=== PATIENT | male | born 1975 | race Asian ===

== ENCOUNTER 2022-10-16 12:43 | Day surgery (SDC) | payer OTHER, SELFPAY ==
[2022-10-16] VITALS (7 sets, daily range): BP systolic 117–149; BP diastolic 70–98; PULSE 65–86; RESP 14–19; TEMP 36.5–37.1; O2SAT 94–98; BMI 33.6
--- NOTE | 2022-10-16 | PATH_ITS ---
[facility] Accession Number: [id number] No. of containers..03 Tissue . 01 Material submitted: . PART A: gastrointestinal site - GASTRIC POLYP PART B: esophagus - Z-LINE BIOPSY PART C: colon - TRANSVERSE COLON POLYP . 01 Diagnosis: A. Gastric Polyp, Biopsy: Consistent with early fundic gland polyp. Negative for Helicobacter organisms by immunohistochemistry. Negative for intestinal metaplasia. Negative for dysplasia or malignancy. Additional step sections examined. . B. Z-Line, Biopsy: Proximal gastric-type mucosa with mild chronic inflammation. Negative for specialized intestinal metaplasia on alcian blue stain. Negative for dysplasia or malignancy. . C. Transverse Colon Polyp: Tubular adenoma. Additional step sections examined. V 10/19/2022 1453 Local . 01 Electronically signed: . Lawrence Mccarty MD, PhD, Pathologist NPI- [id number] . 01 Gross description: . Part A: GASTRIC POLYP: Received in formalin is 1 fragment(s) of cruz, soft tissue measuring 0.2 x 0.2 x 0.2 cm submitted entirely in 1 cassette(s) Part B: Z-LINE BIOPSY: Received in formalin is 1 fragment(s) of cruz, soft tissue measuring 0.3 x 0.2 x 0.2 cm submitted entirely in 1 cassette(s) Part C: TRANSVERSE COLON POLYP: Received in formalin is 1 fragment(s) of cruz, soft tissue measuring 0.3 x 0.2 x 0.2 cm submitted entirely in 1 cassette(s) /APPLE 10/17/2022 1934 Local . 01 Microscopic: . A. An immunohistochemical stain was performed to evaluate for Helicobacter organisms and is negative. The control stain showed appropriate reactivity. . B. An alcian blue stain is performed to evaluate for specialized intestinal metaplasia, and is negative for goblet cells. A control stain shows appropriate reactivity. . * This test was developed and its performance characteristics determined by [facility]. It has not been cleared or approved by the U.S. Food and Drug Administration. The FDA has determined that such clearance or approval is not necessary. This test is used for clinical purposes. It should not be regarded as investigational or for research. . 01 Pathologist provided ICD-10: K31.7, K20.80, D12.3 . 01 CPT . 300260, 063527, 509228, Z07115, 420075 Performed at: 01 [facility] [address] [place] [address], [place], [place] [id number] MD Sincere Ward MD Phone: [phone]
[2022-10-16] MEDS: LACTATED RINGERS 1,000 ML 42 ML IV (14:17)
--- NOTE | 2022-10-16 14:17 | PM.HP.1 ---
History of Present Illness History of Present Illness Date Patient Seen: 10/16/22 Time Patient Seen: 14:17 Chief complaint: EGD/Colonoscopy Narrative: I reviewed the notes. No significant changes. He is not had any bleeding recently. He presents today for diagnostic EGD and colonoscopy for colon cancer screening. [facility] Social History household members: spouse Smoking Status: Never smoker alcohol intake: current Meds Home Medications and Allergies Home Medications Medication Instructions Recorded Confirmed Type omeprazole 20 mg capsule,delayed mg PRN PRN Acid Reflux 10/16/22 History release simvastatin 20 mg tablet 20 mg DAILY 10/16/22 10/16/22 History Allergies Allergy/AdvReac Type Severity Reaction Status Date / Time No Known Drug Allergies Allergy Verified 10/16/22 13:48 Review of Systems Review of Systems ROS: Yes All systems reviewed with the patient and are negative except as otherwise documented Exam Vital Signs (past 8 hours): - 10/16/22 14:06 Temperature 98.8 F Pulse Rate 86 Respiratory Rate 19 Blood Pressure 149/98 H Pulse Oximetry 98 Oxygen Delivery Method Room Air Oxygen Delivery Method Room Air Const General: cooperative HENMT Head: normal to inspection Eyes General: appearance normal, both eyes and all related structures Neck Neck: normal visual inspection Chest Chest: normal inspection of the chest Resp Effort & Inspection: normal respiratory effort Cardio Rate: regular rate GI Inspection: normal to inspection Skin General: no rashes or lesions noted Neuro General: patient alert and patient awake Extrem General: normal to inspection and no pedal edema Psych Appearance: grossly normal Assessment & Plan Assessment & Plan narrative: 47-year-old with chronic GERD. He is indicated for [place] screening. He had an isolated episode of rectal bleeding that might be related to a firm stools and constipation. None recently. He presents for both EGD and colonoscopy for colon cancer screening.
--- NOTE | 2022-10-16 14:19 | PM.PREOP ---
Pre-operative Note Interval Note History & Physical reviewed/Exam performed by Physician: Yes Changes to H&P: No ASA Class (for procedural sedation): II
--- NOTE | 2022-10-16 14:52 | PM.OP.EC ---
Operative Date/Time/Diagnoses Date of procedure: 10/16/22 Time of procedure: 14:52 Pre-op diagnosis: Chronic GERD, remote rectal bleeding, colon cancer screening. Post-op diagnosis: same Procedure & Clinicians Study performed: EGD with biopsies and colonoscopy with cold snare polypectomy Same procedure as scheduled: Yes Indications: Chronic GERD, remote rectal bleeding, colon cancer screening. Surgeon: Oz Wright Procedure Notes SCOAP/Timeout: Done Procedure in detail: After the risks and benefits were explained, written and verbal informed consent was obtained. The patient was brought into the procedure room and placed into the left lateral decubitus position. Please see nurse nurses medical assistants phlebotomists notes for sedation details. The scope was introduced into the mouth through the bite block and advanced under direct visualization to the 2nd portion of the duodenum. The scope was slowly withdrawn carefully examining the mucosa for any defects or lesions. Retroflexed views were accomplished in the stomach. The stomach was decompressed, the scope was then removed from the patient who tolerated the procedure well. The patient was then turned around a digital rectal examination was accomplished. The scope was introduced into the rectum and advanced to the cecum as identified by the appendiceal orifice and ileocecal valve. The scope was slowly withdrawn to carefully examine the mucosa for any defects or lesions. Multiple direct views were made through the dentate line for exclusion of pathology. The colon was decompressed scope removed the patient who tolerated the procedure well. Adult colonoscope Bowel prep adequate Scope withdrawal time: 6 minutes Sedation minutes: 26 Complications: none Impression: 1. Duodenum: This was visually normal from the bulb through to the 2nd portion. 2. Stomach: No evidence of any outlet obstruction. No evidence of mass lesion. Retroflexed views of the LES were unremarkable. There were a couple of very diminutive benign-appearing polyps in the gastric body. One of these was sampled for histopathologic analysis. 3. Esophagus: The squamocolumnar junction correlated for the most part with the GE junction. The Z-line did very to some degree but I suspect this is probably a manifestation of healing or healed esophagitis. There was a small sliding hiatal hernia. GEJ was at 38 cm from the incisors. The patient did have evidence of LA grade a erosive esophagitis. Biopsy was taken from the squamocolumnar junction to exclude any element of specialized intestinal metaplasia. The remainder of the esophagus was unremarkable. 4. Colon: There was a diminutive polyp perhaps 4 mm in the transverse colon removed with cold snare. No additional mucosal pathology was appreciated throughout. Grade 1 internal hemorrhoids were noted on direct views. Endoscopic diagnosis 1. Subtle sliding hiatal hernia 2. LA grade a erosive esophagitis 3. Irregular Z-line 4. Diminutive gastric polyps 5. Diminutive colon polyp 6. Grade 1 internal hemorrhoids Post-procedure Plan for aftercare: 1. Await histopathology. 2. Continue anti-reflux therapy. 3. Surveillance EGD will be considered after pathology review. 4. Repeat colonoscopy will likely be suggested for 7-10 years. 5. Continue fiber based bowel regimen for soft regular stools. Disposition: PACU
== END 2022-10-16 15:37 | disposition home or self-care (01) ==
PROVIDERS: PCP Student in an Organized Health Care Education/Training Program; Referring Provider Internal Medicine Gastroenterology; Visit Provider Internal Medicine Gastroenterology
PROC: 0DJ08ZZ Inspection of Upper Intestinal Tract, Via Natural or Artificial Opening Endoscopic (ICD-10-PCS; CPT 43235; principal; 2022-10-16 14:00)
PROC: 0DJD8ZZ Inspection of Lower Intestinal Tract, Via Natural or Artificial Opening Endoscopic (ICD-10-PCS; CPT 45378; 2022-10-16 14:00)
DX: Z12.11 Encounter for screening for malignant neoplasm of colon (principal); K21.9 Gastro-esophageal reflux disease without esophagitis; K44.9 Diaphragmatic hernia without obstruction or gangrene; K64.0 First degree hemorrhoids; K31.7 Polyp of stomach and duodenum; K20.80 Other esophagitis without bleeding; D12.3 Benign neoplasm of transverse colon
CPT/HCPCS: 45378; 43239; J2704